=== PATIENT | male | born 1990 | race Caucasian/White ===

== ENCOUNTER 2016-05-31 16:53 | Emergency (ER) | payer OTHER ==
[~2016-05-31] VITALS: Ht 182.9 cm; Wt 75.0 kg
[2016-05-31 17:02] VITALS: TEMP 36.8; Ht 182.9 cm; Wt 75.0 kg
[2016-05-31] MEDS ORDERED: HYDROCODONE/ACETAMOPHEN 5/325MG TAB PO ONE (17:45)
[2016-05-31] MEDS ORDERED: HYDR-5688 PO (18:19)
--- NOTE | 2016-05-31 18:41 | DIAGNOSTIC IMAGING REPORT ---
RIGHT SHOULDER 2 VIEWS CLINICAL HISTORY: Fall with right shoulder pain. FINDINGS: 2 views of the right shoulder are obtained. No prior studies are available for comparison at the time of dictation. The skeletal structures are well mineralized. No fracture is seen. The glenohumeral articulation appears preserved. There is acromioclavicular joint separation. The clavicular head is superiorly subluxed by a full shaft length. Mild overlying soft tissue edema is noted. The imaged right lung parenchyma is clear. IMPRESSION: 1. No fracture is identified. 2. Findings are consistent with acromioclavicular joint separation. Electronically signed by: Jose Mancera M.D. 05/31/2016 6:39 PM Dictated Date/Time: 05/31/2016 6:38 PM
[2016-05-31 18:56] VITALS: BP 141/72; PULSE 87; O2SAT 96
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
== END 2016-05-31 18:57 | disposition home or self-care (01) ==
LOC: C.EDB 16:55 → C.EDD 18:57
DX: S43.101A Unspecified dislocation of right acromioclavicular joint, initial encounter (principal); V18.0XXA Pedal cycle driver injured in noncollision transport accident in nontraffic accident, initial encounter; Y93.55 Activity, bike riding; Y99.8 Other external cause status; Z72.0 Tobacco use